=== PATIENT | male | born 1960 | race Caucasian/White ===

== ENCOUNTER 2021-12-12 10:19 | Emergency (ER) | payer BC, SELFPAY ==
[2021-12-12 10:36] VITALS: BP 140/81; PULSE 91; RESP 16; TEMP 36.9; O2SAT 97
--- NOTE | 2021-12-12 10:42 | ED.URI ---
HPI - URI/Sore Throat General Chief Complaint: Upper Respiratory Infection Stated Complaint: sinus prob Time Seen by Provider: 12/12/21 10:43 Source: patient History of Present Illness HPI Narrative: patient presents with a 3 week history of sinus congestion and pressure. no shortness of breath and no chest pain. patient is not taking anything over the counter for his symptoms. Related Data Allergies Allergy/AdvReac Type Severity Reaction Status Date / Time morphine AdvReac Severe Palpitation Verified 09/08/18 15:43 s prednisone AdvReac Intermediate Other Verified 09/08/18 15:43 albuterol AdvReac Palpitation Verified 12/12/21 10:50 s Review of Systems Review of Systems: CONSTITUTIONAL: Denies fever, chills, or sweats. EYES: Denies visual changes, redness, or discharge. ENT: Denies rhinorrhea, congestion, sore throat, or otalgia. CARDIOVASCULAR: Denies chest pain, palpitations, or edema. RESPIRATORY: Denies cough or dyspnea. GASTROINTESTINAL: Denies abdominal pain, nausea, vomiting, or diarrhea. GENITOURINARY: Denies dysuria or hematuria. SKIN: Denies rash or itching. MUSCULOSKELETAL: Denies back pain, joint pain, or myalgia. NEUROLOGIC: Denies headache, numbness, or weakness. PSYCHIATRIC: Denies anxiety or depression. PMFSH Comments At time of signature, agree with nursing past medical, surgical, social and family history. There is no relevant family history pertinent to the presenting complaint Exam Narrative: GENERAL: Well-appearing, well-nourished, and in no acute distress. HEAD: Normocephalic, atraumatic. EYES: PERRLA and EOMI. ENT: Nares clear, no rhinorrhea or epistaxis. Mucous membranes moist. Moderate maxillary sinus pressure NECK: Supple. CHEST: Clear to auscultation. No respiratory distress. HEART: Regular rate and rhythm. No murmur heard. Normal peripheral pulses. ABDOMEN: Soft, nontender, nondistended, normal active bowel sounds. EXTREMITIES: Normal range of motion. No edema. SKIN: Warm, dry, no rash. NEURO: No focal deficits. Alert and oriented x3. [place] Coma Scale Eye Opening: Spontaneous 4 [place] Coma Scale Motor: Obeys Commands 6 [place] Coma Scale Verbal: Oriented 5 [place] Coma Scale Total 15 Course Course Level of Care: Express Care Visit Vital Signs Vital signs: Vital Signs Temperature 36.9 C 12/12/21 10:36 Pulse Rate 91 12/12/21 10:36 Respiratory Rate 16 12/12/21 10:36 Blood Pressure 140/81 12/12/21 10:36 Pulse Oximetry 97 12/12/21 10:36 Temperature 36.9 C 12/12/21 10:36 Pulse Rate 91 12/12/21 10:36 Respiratory Rate 16 12/12/21 10:36 Blood Pressure 140/81 12/12/21 10:36 Pulse Oximetry 97 12/12/21 10:36 Addressed elevated BP today. Today's blood pressure higher than recommended range. Discussed importance of follow -up with PCP and possible care home effects/cardiovascular events related to HTN. Currently patient denies headache, dizziness, vision changes, CP or shortness of breath. Critical dx considered and discussed with pt. Educated patient on red flag s/s and to go to ED if s/s occur. Discussed with pt when to return to Express Care or primary care provider. Pt gave verbal undertstanding, all questions were answered, and pt was agreeable to plan MDM - URI/Sore Throat Differential Diagnosis Differential diagnosis: Likely upper respiratory infection, croup, otitis media, viral infection, bronchitis, influenza and pharyngitis Critical Care Time Critical Care Time Critical Care Time: No Discharge Plan Discharge Clinical Impression: Sinusitis Patient Disposition: Home, Self-Care Condition: Stable Instructions: Antibiotic Form, Sinusitis (ED) Additional Instructions: INUSITIS, Abx Tx, Drink plenty of water (with the goal to keep your urine clear to light yellow) and get plenty of rest (8-9 hours a night).You may try saline rinses ([place]/Simply Saline/Neti Pot), Deonte's Vaporub, or a humidifier/hot showers for your nose sy
== END 2021-12-12 11:11 | disposition home or self-care (01) ==
PROVIDERS: Emergency Provider Nurse Practitioner Family
DX: J32.9 Chronic sinusitis, unspecified (principal)
CPT/HCPCS: 99213; G0463

== ENCOUNTER 2022-07-23 14:07 | Emergency (ER) | payer BC, SELFPAY ==
--- NOTE | 2022-07-23 14:13 | ED.URI ---
HPI - URI/Sore Throat General Chief Complaint: Upper Respiratory Infection Stated Complaint: chest and head congestion Time Seen by Provider: 07/23/22 14:13 Source: patient and RN notes reviewed History of Present Illness HPI Narrative: Patient is a 62-year-old male who presents the urgent care with his with complaints of chest and head congestion with productive cough, mild sore throat and intermittent headaches. Patient states he has not been taking anything [id number] for his symptoms with the exception of Flonase nasal spray. States that he cannot take antihistamine or steroids. Patient states he recently had polyps removed as well as balloon pump surgery to the sinuses. Patient does have an ENT. Denies any recent fevers. No other acute complaints. No acute distress noted. Patient and spouse aware of the plan of care. Some parts of this dictation were generated by voice recognition software and may contain typographical and/or grammatical inaccuracies. Related Data Allergies Allergy/AdvReac Type Severity Reaction Status Date / Time morphine AdvReac Severe Palpitation Verified 07/23/22 14:20 s prednisone AdvReac Intermediate Other Verified 07/23/22 14:20 albuterol AdvReac Palpitation Verified 07/23/22 14:20 s Review of Systems Review of Systems: CONSTITUTIONAL: Denies fever, chills, or sweats. EYES: Denies visual changes, redness, or discharge. ENT: Reports of sinus congestion, postnasal drainage, intermittent sore throat CARDIOVASCULAR: Denies chest pain, palpitations, or edema. RESPIRATORY: Reports a mild productive cough without dyspnea GASTROINTESTINAL: Denies abdominal pain, nausea, vomiting, or diarrhea. GENITOURINARY: Denies dysuria or hematuria. SKIN: Denies rash or itching. MUSCULOSKELETAL: Denies back pain, joint pain, or myalgia. NEUROLOGIC: Reports of intermittent headaches All other systems reviewed are negative, except as documented in HPI. PMFSH Comments At the time of my signature, I reviewed and agree with the nursing past medical, surgical, social, and family history. There is no relevant family history pertinent to the patient complaint. Exam Narrative: GENERAL: This is a well-nourished, well-developed patient, in no apparent distress. HEAD: normocephalic, atraumatic. EYES: PERRL. Sclera clear/white. Vision is grossly intact. EARS: External ears normal, auditory canals clear and without drainage, TMs normal without perforation. Hearing grossly intact. NOSE: External nose normal with no obvious nasal discharge. Mild bilateral erythemic nares with clear yellow rhinorrhea THROAT: Mucous membranes moist, posterior pharynx clear. Moderate postnasal drainage NECK: Neck supple, non-tender without lymphadenopathy CARDIOVASCULAR: Regular rate and rhythm without murmurs, gallops, or rubs. RESPIRATORY: Scant inspiratory wheezes, cleared with cough SKIN: warm, intact with no suspicious lesions or rash, good texture and turgor. NEURO: awake, alert, and oriented to person, place and time. There were no obvious focal neurologic abnormalities. EXTREMITIES: No clubbing, cyanosis, or edema. Course Course Level of Care: Express Care Visit Vital Signs Vital signs: Vital Signs Temperature 98.6 F 07/23/22 14:14 Pulse Rate 84 07/23/22 14:14 Respiratory Rate 16 07/23/22 14:14 Blood Pressure 140/77 07/23/22 14:14 Pulse Oximetry 97 07/23/22 14:14 Oxygen Delivery Room Air 07/23/22 14:14 Temperature 98.6 F 07/23/22 14:14 Pulse Rate 84 07/23/22 14:14 Respiratory Rate 16 07/23/22 14:14 Blood Pressure 140/77 07/23/22 14:14 Pulse Oximetry 97 07/23/22 14:14 Oxygen Delivery Room Air 07/23/22 14:14 Reviewed MDM - URI/Sore Throat MDM Narrative Medical decision making narrative: Explained to the patient viral versus bacterial sinusitis. Symptoms are likely viral however due to your sinus surgery and history as well as the inability to take steroids or antih
[2022-07-23 14:14] VITALS: BP 140/77; PULSE 84; RESP 16; TEMP 37; O2SAT 97
== END 2022-07-23 14:30 | disposition home or self-care (01) ==
PROVIDERS: Emergency Provider Nurse Practitioner Family; PCP Internal Medicine Infectious Disease
DX: J32.9 Chronic sinusitis, unspecified (principal); M19.90 Unspecified osteoarthritis, unspecified site
CPT/HCPCS: 99203; G0463